=== PATIENT | female | born 1965 | race Caucasian/White ===

== ENCOUNTER 2017-01-13 16:22 | Emergency (ER) | payer OTHER ==
--- NOTE | 2017-01-13 16:56 | ER Document Report ---
ED Medical Screen (RME) - General Chief Complaint: Chest Pain Stated Complaint: CHEST PAIN Time Seen by Provider: 01/13/17 16:53 Notes: Patient says that she has been having shortness of breath and left-sided chest pains off and on for the past week. Is located in the upper left breast and below the left breast Says that it feels like it is tightening. Says that it has felt like she was punched in her mid epigastric region. Now, she says her arms and legs arm all going numb. Has been nauseated without vomiting. No change in bowel habits. Denies any fevers. Patient and seem to feel that all of her symptoms began when she started taking a hormone (methyl progesterone) to regulate her periods a week or 2 ago. Since then, she has been having cramping and anxiety. Patient has no history of any heart disease. TRAVEL OUTSIDE OF THE [place] IN LAST 30 DAYS: No - Related Data Allergies/Adverse Reactions: Sulfa (Sulfonamide Antibiotics) Allergy (Verified 01/13/17 16:31) Past Medical History Renal/ Medical History: Denies: Hx Peritoneal Dialysis Physical Exam - Vital signs Vitals: Temp Pulse Resp BP Pulse Ox 98.2 F 71 16 153/92 H 99 01/13/17 16:31 01/13/17 16:31 01/13/17 16:31 01/13/17 16:31 01/13/17 16:31 Course - Vital Signs Vital signs: Temp Pulse Resp BP Pulse Ox 98.2 F 71 16 153/92 H 99 01/13/17 16:31 01/13/17 16:31 01/13/17 16:31 01/13/17 16:31 01/13/17 16:31
[2017-01-13 17:30] LABS: ABSOLUTE BASOPHILS # (AUTO) 0.1 10^3/uL (0.0-0.2); ABSOLUTE EOSINOPHILS # (AUTO) 0.1 10^3/uL (0.0-0.6); ABSOLUTE LYMPHOCYTES (AUTO) 1.8 10^3/uL (0.5-4.7); ABSOLUTE MONOCYTES (AUTO) 0.4 10^3/uL (0.1-1.4); ABSOLUTE NEUT (AUTO) 5.5 10^3/uL (1.7-8.2); BASOPHILS % (AUTO) 0.7 % (0-2); EOSINOPHILS % (AUTO) 1.1 % (0-6); HEMATOCRIT 40.2 % (36.0-47.0); HEMOGLOBIN 13.4 g/dL (12.0-15.5); LYMPHOCYTES % (AUTO) 22.5 % (13-45); MEAN CORPUSCULAR HEMOGLOBIN 30.2 pg (27.0-33.4); MEAN CORPUSCULAR HGB CONC 33.2 g/dL (32.0-36.0); MEAN CORPUSCULAR VOLUME 91 fl (80-97); MONOCYTES % (AUTO) 4.8 % (3-13); RED BLOOD COUNT 4.42 10^6/uL (3.72-5.28); RED CELL DISTRIBUTION WIDTH 13.1 % (11.5-14.0); SEGMENTED NEUTROPHILS % (AUTO) 70.9 % (42-78); WHITE BLOOD COUNT 7.8 10^3/uL (4.0-10.5)
[2017-01-13 17:48] LABS: ALANINE AMINOTRANSFERASE 33 U/L (9-52); ALBUMIN 4.6 g/dL (3.5-5.0); ALKALINE PHOSPHATASE 92 U/L (38-126); ANION GAP 13 (5-19); ASPARTATE AMINO TRANSFERASE 23 U/L (14-36); BILIRUBIN,DIRECT 0.3 mg/dL (0.0-0.4); BILIRUBIN,TOTAL 0.7 mg/dL (0.2-1.3); BLOOD UREA NITROGEN 9 mg/dL (7-20); CALCIUM 9.9 mg/dL (8.4-10.2); CARBON DIOXIDE 23 mmol/L (22-30); CHLORIDE 105 mmol/L (98-107); CREATINE KINASE 72 U/L (30-135); GLUCOSE 94 mg/dL (75-110); LIPASE 41.7 U/L (23-300); SODIUM 140.8 mmol/L (137-145); TOTAL PROTEIN 7.7 g/dL (6.3-8.2)
[2017-01-13 18:00] LABS: CREATINE KINASE MB 0.44 ng/mL (<4.55); TROPONIN I < 0.012 ng/mL
[2017-01-13] MEDS ORDERED: LORAZEPAM 0.5 MG TABLET PO ONE (18:01)
--- NOTE | 2017-01-13 18:03 | RADIOLOGY REPORT (SQ) ---
EXAM DESCRIPTION: CHEST PA/LAT COMPLETED DATE/TIME: 01/13/2017 5:38 pm REASON FOR STUDY: Chest pain, primarily left side COMPARISON: 2009. TECHNIQUE: Frontal and lateral radiographic views of the chest acquired. NUMBER OF VIEWS: Two view. LIMITATIONS: None. FINDINGS: LUNGS AND PLEURA: No opacities, masses or pneumothorax. No pleural effusion. MEDIASTINUM AND HILAR STRUCTURES: No masses or contour abnormalities. HEART AND VASCULAR STRUCTURES: Heart normal size. No evidence for failure. BONES: No acute findings. HARDWARE: None in the chest. OTHER: No other significant finding. IMPRESSION: NO SIGNIFICANT RADIOGRAPHIC FINDING IN THE CHEST. TECHNICAL DOCUMENTATION: JOB ID: [id number] [employer]- All Rights Reserved
--- NOTE | 2017-01-13 19:49 | ER Document Report ---
ED General - General TRAVEL OUTSIDE OF THE [place] IN LAST 30 DAYS: No - HPI Onset: Other - Refer to HPI note Similar symptoms previously: No Recently seen / treated by doctor: No <STEVEN CODY - Last Filed: 01/13/17 21:37> <HUMZA MIRANDA - Last Filed: 01/13/17 23:01> - General Chief Complaint: Chest Pain Stated Complaint: CHEST PAIN Time Seen by Provider: 01/13/17 16:53 Notes: Patient is a 51-year-old female presents emergency department for chest pain, abdominal pain, shortness of breath. Patient has also had some nausea and tingling to her hands and feet which she relates with anxiety. Patient states she felt like she was "punched in the stomach" and has a constant dull pain. Patient states she has also had some urinary symptoms for which she took AZO yesterday and had relief. Patient states that she felt like she was having lower abdominal pain that felt like contractions yesterday. Patient also complains of groin pain yesterday. Patient states that she went through menopause for about a year and then had her menstrual period started on 2016. Patient saw her [employer] [facility] about this and was given methyl progesterone; patient believes this may be the cause of the rest of her symptoms. Patient had a vaginal ultrasound which showed some scaring and the patient is scheduled for a biopsy on Saturday. Patient also complains of 2 tick bites x3 weeks prior and does not know how long the ticks were one her. The ticks were on her buttocks and her lower back. Patient requests to be tested for Lyme's disease. (STEVEN CODY) - Related Data Allergies/Adverse Reactions: Sulfa (Sulfonamide Antibiotics) Allergy (Verified 01/13/17 16:31) Past Medical History - General Information source: Patient - Social History Smoking Status: Never Smoker Cigarette use (# per day): No Chew tobacco use (# tins/day): No Frequency of alcohol use: None Drug Abuse: None Patient has suicidal ideation: No Patient has homicidal ideation: No Pulmonary Medical History: Reports: Hx Asthma <STEVEN CODY - Last Filed: 01/13/17 21:37> - Social History Family History: Reviewed & Not Pertinent <HUMZA MIRANDA - Last Filed: 01/13/17 23:01> Review of Systems - Review of Systems Constitutional: No symptoms reported EENT: No symptoms reported Cardiovascular: See HPI, Chest pain Respiratory: See HPI, Short of breath Gastrointestinal: See HPI, Abdominal pain, Nausea Genitourinary: See HPI Female Genitourinary: See HPI Musculoskeletal: See HPI Skin: See HPI Hematologic/Lymphatic: No symptoms reported Neurological/Psychological: No symptoms reported -: Yes All other systems reviewed and negative <STEVEN CODY - Last Filed: 01/13/17 21:37> Physical Exam <STEVEN CODY - Last Filed: 01/13/17 21:37> - Vital signs Interpretation: Normal - General General appearance: Appears well, Alert - HEENT Head: Normocephalic, Atraumatic Eyes: Normal Pupils: PERRL - Respiratory Respiratory status: No respiratory distress Chest status: Nontender Breath sounds: Normal Chest palpation: Normal - Cardiovascular Rhythm: Regular Heart sounds: Normal auscultation Murmur: No - Abdominal Inspection: Normal Distension: No distension Bowel sounds: Normal Tenderness: Nontender Organomegaly: No organomegaly - Back Back: Normal, Nontender - Extremities General upper extremity: Normal inspection, Nontender, Normal color, Normal ROM , Normal temperature General lower extremity: Normal inspection, Nontender, Normal color, Normal ROM , Normal temperature, Normal weight bearing. No: Vidya's sign - Neurological Neuro grossly intact: Yes Cognition: Normal Orientation: AAOx4 Stephan Coma Scale Eye Opening: Spontaneous Stephan Coma Scale Verbal: Oriented Stephan Coma Scale Motor: Obeys Commands Stephan Coma Scale Total: 15 Speech: Normal Motor strength normal: LUE, RUE, LLE, RLE Sensory: Normal - Psychological Associated symptoms: Normal affect, Anxious - Skin Skin Temperature: Warm Skin Moisture: Dry Skin Color: Normal <HUMZA MIRANDA - Last Filed: 01/13/17 23:01> - Vital signs Vitals: Temp Pulse Resp BP Pulse Ox 98.2 F 71 16 153/92 H 99 01/13/17 16:31 01/13/17 16:31 01/13/17 16:31 01/13/17 16:31 01/13/17 16:31 Course - Laboratory Result Diagrams: 01/13/17 17:19 01/13/17 17:19 <STEVEN CODY - Last Filed: 01/13/17 21:37> - Laboratory Result Diagrams: 01/13/17 17:19 01/13/17 17:19 <HUMZA MIRANDA - Last Filed: 01/13/17 23:01> - Re-evaluation Re-evalutation: 01/13/17 Patient is a 51-year-old female who comes in with multiple complaints, but her most concerning one is chest pain. Patient does not have any risk factors for coronary artery disease. Patient also states that she had an embedded tick and is concerned about Lyme disease. Titer has been sent. Patient will be started on doxycycline. Blood work within normal limits. D-dimer negative. Troponin negative 2. No acute findings on EKG or chest x-ray. The patient feels better after Ativan. Patient will be discharged home with doxycycline and is to follow-up with her doctor. She can call for titer results. Understands and agrees with plan. Stable for discharge. Grateful for care. (HUMZA MIRANDA) - Vital Signs Vital signs: Temp Pulse Resp BP Pulse Ox 98.2 F 71 12 136/80 H 98 01/13/17 16:31 01/13/17 16:31 01/13/17 21:01 01/13/17 21:01 01/13/17 21:01 Discharge <STEVEN CODY - Last Filed: 01/13/17 21:37> <HUMZA MIRANDA - Last Filed: 01/13/17 23:01> - Discharge Clinical Impression: Atypical chest pain Condition: Stable Disposition: HOME, SELF-CARE Instructions: Chest Pain of Unclear Cause ([facility]), Panic Attack ([facility]) Additional Instructions: A Lyme titer has been sent. Please start taking doxycycline as prescribed. Please follow-up with your doctor this week. Prescriptions: Doxycycline Hyclate 100 mg PO BID #28 capsule Scribe Attestation: 01/13/17 23:00 I personally performed the services described in the documentation, reviewed and edited the documentation which was dictated to the scribe in my presence, and it accurately records my words and actions. (HUMZA MIRANDA) Scribe Documentation - Scribe Written by Boston:: Boston Dos Santos 01/13/17 20:46 acting as scribe for :: Jam <STEVEN CODY - Last Filed: 01/13/17 21:37>
[2017-01-13 21:54] VITALS: BP 136/80
[2017-01-13 21:58] LABS: APPEARANCE,URINE CLEAR; BILIRUBIN,URINE NEGATIVE (NEGATIVE); GLUCOSE, URINE NEGATIVE (NEGATIVE); KETONES,URINE NEGATIVE (NEGATIVE); LEUKOCYTE ESTERASE,URINE NEGATIVE (NEGATIVE); NITRITE,URINE NEGATIVE (NEGATIVE); PROTEIN,URINE NEGATIVE (NEGATIVE); URINE SPECIFIC GRAVITY 1.003; UROBILINOGEN,URINE NEGATIVE mg/dL (<2.0)
--- NOTE | 2017-01-14 09:56 | EKG REPORT ---
SEVERITY:- BORDERLINE ECG - SINUS RHYTHM BORDERLINE T WAVE ABNORMALITIES : Confirmed by: Christen Castle 14-Jan-2017 09:55:07
[2017-01-16 07:01] LABS: LYME DISEASE IGG AND IGM AB <0.91 ISR (0.00-0.90)
== END 2017-01-13 22:02 | disposition home or self-care (01) ==
LOC: ER 16:22
DX: R07.9 Chest pain, unspecified (principal); R06.02 Shortness of breath; R11.2 Nausea with vomiting, unspecified
CPT/HCPCS: 36415; 71020; 80053; 81001; 82550; 82553; 83690; 84443; 84484; 84702; 85025; 85379; 86617; 86618; 93005; 93010; 99285